=== PATIENT | female | born 1985 | race Caucasian/White ===

== ENCOUNTER 2019-04-20 17:18 | Emergency (ER) | payer OTHER ==
--- NOTE | 2019-04-20 18:37 | EDM.PDOC ---
ED HPI GENERAL MEDICAL PROBLEM - General Chief Complaint: Gastrointestinal Problem Stated Complaint: SPOKE TO NURSE Time Seen by Provider: 04/20/19 18:13 - History of Present Illness INITIAL COMMENTS - FREE TEXT/NARRATIVE: Patient rectal pain for the last few days and bright red blood with hard stool that cause pain. Feels rectal pressure and rectal pain denies any history of similar episode. Patient thinks that she might have a hemorrhoid. Denies any fever chills denies any incontinence of stool. Pain does not increase with ambulation. Patient denies any significant constipation. No bleeding without bowel movement patient has only limited amount of bleeding and spotting with normal BM that causes pain. Denies abdominal pain nausea vomiting diarrhea or anorexia. Denies any trauma. Denies any dysuria rectum Pain Score (Numeric/FACES): 10 - Related Data Allergies Allergy/AdvReac Type Severity Reaction Status Date / Time acetaminophen [From Vicodin] Allergy Itching Verified 04/20/19 17:56 hydrocodone [From Vicodin] Allergy Itching Verified 04/20/19 17:56 MRI Contrast Allergy Shaking Uncoded 04/20/19 17:57 Home Meds: Home Meds Acetaminophen/oxyCODONE [Percocet 325-5 MG] 1 each PO Q6HR PRN 3 Days #14 tab [Rx] Amoxicillin/Potassium Clav [Augmentin 875-125 Tablet] 1 each PO BID #20 tablet 04/20/19 [Rx] Docusate Sodium [Colace] 100 mg PO BID 30 Days #60 cap 04/20/19 [Rx] Hydrocortisone Acetate [Anusol-Hc] 25 mg RC BID 5 Days #10 supp.rect 04/20/19 [ Rx] Phentermine HCl 37.5 mg PO DAILY 04/20/19 [History] buPROPion [Wellbutrin] 150 mg PO DAILY 04/20/19 [History] metroNIDAZOLE [Flagyl] 500 mg PO Q8H #30 tab 04/20/19 [Rx] Past Medical History [employer] History: Reports: - Past Surgical History HEENT Surgical History: Reports: Oral Surgery Female Surgical History: Reports: Section Musculoskeletal Surgical History: Reports: Arthroscopic Knee, Shoulder Surgery Social & Family History - Family History Family Medical History: Noncontributory GI: Reports: Other (See Below) Other GI Family History: polyps - Tobacco Use Smoking Status *Q: Former Smoker Used Tobacco, but Quit: Yes Month/Year Tobacco Last Used: 7 months ago - Recreational Drug Use Recreational Drug Use: No ED ROS GENERAL - Review of Systems Review Of Systems: See Below Constitutional: Reports: No Symptoms HEENT: Reports: No Symptoms Cardiovascular: Reports: No Symptoms GI/Abdominal: Reports: Bloody Stool, Constipation, Other (Rectal pain) Musculoskeletal: Reports: No Symptoms Hematologic/Lymphatic: Reports: No Symptoms ED EXAM, GI/ABD - Physical Exam Exam: See Below Exam Limited By: No Limitations General Appearance: Alert, WD/WN, No Apparent Distress Eyes: Bilateral: Normal Appearance, EOMI Ears: Normal External Exam, Normal Canal, Hearing Grossly Normal, Normal TMs Nose: Normal Inspection, Normal Mucosa, No Blood Throat/Mouth: Normal Inspection, Normal Lips, Normal Teeth, Normal Gums, Normal Oropharynx, Normal Voice, No Airway Compromise Head: Atraumatic, Normocephalic Neck: Normal Inspection, Supple, Non-Tender, Full Range of Motion Respiratory/Chest: No Respiratory Distress, Lungs Clear, Normal Breath Sounds, No Accessory Muscle Use, Chest Non-Tender Cardiovascular: Normal Peripheral Pulses, Regular Rate, Rhythm, No Edema, No Gallop, No JVD, No Murmur, No Rub GI/Abdominal Exam: Normal Bowel Sounds, Soft, Non-Tender, No Organomegaly, Other (Rectal exam done with ore buyer, there is internal hemorrhoid at 9:00 with no active bleeding, no obvious external thrombosed hemorrhoid and no evidence of alena-anal or perirectal abscess) Rectal (Female) Exam: Normal Rectal Tone, Hemorrhoids, Other (See above abdominal exam for other part of rectal exam regarding hemorrhoid) Extremities: Normal Inspection, Normal Range of Motion, Non-Tender, Normal Capillary Refill, No Pedal Edema Neurological: Alert, Oriented, CN II-XII Intact, Normal Cognition, Normal Gait, Normal Reflexes, No Motor/Sensory Deficits Course - Vital Signs Last Recorded V/S: Last Vital Signs Temp 98.9 F 04/20/19 17:52 Pulse 108 H 04/20/19 17:52 Resp 16 04/20/19 17:52 BP 126/85 04/20/19 17:52 Pulse Ox 98 04/20/19 17:52 - Re-Assessments/Exams Free Text/Narrative Re-Assessment/Exam: Commended analgesic stool softener and antibiotics as well as Anusol HC for internal hemorrhoid as bleeding possibility of early infection in the alena- rectal area this cannot be confirmed because exam is limited because of patient' s intolerance of the exam however there is no obvious abscess on the exam 04/20/19 18:37 Departure - Departure Time of Disposition: 18:38 Disposition: Home, Self-Care 01 Condition: Good Clinical Impression: Internal hemorrhoid - Discharge Information *PRESCRIPTION DRUG MONITORING PROGRAM REVIEWED*: No *COPY OF PRESCRIPTION DRUG MONITORING REPORT IN PATIENT PARAG: No Instructions: Hemorrhoids, Hemorrhoids, [id number] Referrals: Lilli Pleitez DO [Primary Care Provider] - Sepsis Event Note - Evaluation Sepsis Screening Result: No Definite Risk - Focused Exam Vital Signs: Vital Signs Temp Pulse Resp BP Pulse Ox 04/20/19 17:52 98.9 F 108 H 16 126/85 98 Date Exam was Performed: 04/20/19 Time Exam was Performed: 18:32
== END 2019-04-20 19:13 | disposition home or self-care (01) ==
LOC: MW.ED 17:18
DX: K64.8 Other hemorrhoids (principal); Z98.890 Other specified postprocedural states; Z87.891 Personal history of nicotine dependence; Z91.041 Radiographic dye allergy status; Z88.8 Allergy status to other drugs, medicaments and biological substances; Z79.899 Other long term (current) drug therapy
CPT/HCPCS: 99283